=== PATIENT | male | born 1960 | race Caucasian/White ===

== ENCOUNTER 2025-01-29 08:24 | Inpatient (IN) | payer MEDICAID ==
[~2025-01-29] VITALS: Ht 182.9 cm; Wt 134.1 kg
[2025-01-29 08:52] LABS: BASOPHILS % (AUTO) 0.7 % (0-1); EOSINOPHILS # (AUTO) 0.3 X10'3 (0-0.9); EOSINOPHILS % (AUTO) 4.1 % (0-6); HEMATOCRIT 46.5 % (42.0-52.0); HEMOGLOBIN 15.5 g/dl (14.0-17.9); LYMPHOCYTES # (AUTO) 1.4 X10'3 (1.1-4.8); MEAN CORPUSCULAR HEMOGLOBIN 28.9 PG (27.0-31.0); MEAN CORPUSCULAR HGB CONC 33.4 g/dL (33.0-36.5); MEAN CORPUSCULAR VOLUME 86.7 FL (78-98); MEAN PLATELET VOLUME 7.8 FL (7.4-10.4); MONOCYTES # (AUTO) 0.4 X10'3 (0-0.9); NEUTROPHILS # (AUTO) 4.4 X10'3 (1.8-7.7); NEUTROPHILS % (AUTO) 67.2 % (42-75); PLATELET COUNT 266 X10'3 (140-440); RED BLOOD COUNT 5.36 X10'6 (4.70-6.10); RED CELL DISTRIBUTION WIDTH 15.5 % (11.5-14.5); WHITE BLOOD COUNT 6.5 X10'3 (4.5-11.0)
[2025-01-29 09:04] LABS: ALBUMIN 4.5 G/DL (3.4-5.0); ANION GAP 9 (8-16); BLOOD UREA NITROGEN 12 MG/DL (7-18); BUN/CREATININE RATIO 14.8 (10.0-20.0); CALCIUM 9.5 MG/DL (8.5-10.1); CHLORIDE 104 MMOL/L (99-107); CREATININE 0.81 MG/DL (0.60-1.10); GLUCOSE 112 MG/DL (70-104); POTASSIUM 3.5 MMOL/L (3.5-5.1); SODIUM 141 MMOL/L (135-145); eCRCL 101 ML/MIN; eGFR > 90 ML/MIN
[2025-01-29 09:05] LABS: APTT 26 SECONDS (22-32); PROTHROMBIN TIME 10.6 SECONDS (9.0-12.0)
[2025-01-29] MEDS ORDERED: iohexol 350MG/ML 100ml bottle IV ONE (09:36)
[2025-01-29] MEDS: diphenhydrAMINE 50 mg/ml inj IV ONE (10:35)
[2025-01-29] MEDS: proCHLORperazine 10 MG/2 ml inj IV ONE (10:35)
[2025-01-29] MEDS: ketorolac trometh 15mg/ml vial 15 MG/ML ML IV ONE (10:35)
[2025-01-29] MEDS: ringers solution, lacted 1,000 ML IV ONE (10:36)
[2025-01-29] MEDS: labetalol 20mg/4ml (5mg/ml) syringe IV ONE (13:08)
[2025-01-29] MEDS ORDERED: potassium Cl 40MEQ/1/2NS 520ml 520 ML IV PRN (16:45)
[2025-01-29] MEDS ORDERED: magnesium sulf-water 2g/50mL 50 ML IV PRN (16:45)
[2025-01-29] MEDS ORDERED: acetaminophen 325mg tablet PO PRN (16:45)
[2025-01-29] MEDS ORDERED: magnesium sulf-water 4G/100mL 100 ML IV PRN (16:45)
[2025-01-29] MEDS ORDERED: magnesium Cl slow-release 64mg tablet PO PRN (16:45)
[2025-01-29] MEDS ORDERED: PERFLUTREN PROTEIN-A MICROSPHR (Optison) 0.22 MG/ML 3ML VIAL IV ONE (16:45)
[2025-01-29] MEDS ORDERED: potassium Cl 20 mEq SR tablet PO PRN ×2 (16:45)
[2025-01-29 17:00] VITALS: BP 185/96; PULSE 63; RESP 21; TEMP 97.4; O2SAT 97
[2025-01-29 17:33] LABS: CHOL/HDL RATIO 3.1 (0.00-4.99); CHOLESTEROL 170 MG/DL (0-200); HDL CHOLESTEROL 55 MG/DL (35-60); LDL CHOLESTEROL 93 MG/DL (50-100); TRIGLYCERIDES 79 MG/DL (20-135)
[2025-01-29] MEDS: aspirin 325mg tablet PO ONE (18:20)
[2025-01-29] MEDS: hydrALAZINE 20mg/ml inj. IV PRN (18:24)
[2025-01-29 19:51] VITALS: BP 173/78; PULSE 61
[2025-01-29] MEDS ORDERED: hydrALAZINE 20mg/ml inj. IV SCH (20:00)
[2025-01-29] MEDS: K and/or MAG REPLACEMENT MC SCH (20:00)
[2025-01-29] MEDS ORDERED: NO HOME MEDS (20:07)
[2025-01-29 22:00] VITALS: BP 144/72; PULSE 62; RESP 18; TEMP 98.5; O2SAT 95
[2025-01-30 04:00] VITALS: BP 142/75; PULSE 62; O2SAT 94
[2025-01-30 06:00] VITALS: BP 151/69; PULSE 75; RESP 14; TEMP 97.9; O2SAT 94
[2025-01-30 06:03] LABS: EOSINOPHILS # (AUTO) 0.3 X10'3 (0-0.9); HEMOGLOBIN 13.6 g/dl (14.0-17.9); LYMPHOCYTES # (AUTO) 1.4 X10'3 (1.1-4.8); MONOCYTES # (AUTO) 0.5 X10'3 (0-0.9); NEUTROPHILS # (AUTO) 4.2 X10'3 (1.8-7.7); WHITE BLOOD COUNT 6.5 X10'3 (4.5-11.0)
[2025-01-30 06:26] LABS: ALBUMIN 3.7 G/DL (3.4-5.0); ANION GAP 7 (8-16); BLOOD UREA NITROGEN 8 MG/DL (7-18); BUN/CREATININE RATIO 8.6 (10.0-20.0); CALCIUM 8.8 MG/DL (8.5-10.1); CHLORIDE 105 MMOL/L (99-107); CHOL/HDL RATIO 3.1 (0.00-4.99); CHOLESTEROL 128 MG/DL (0-200); CREATININE 0.93 MG/DL (0.60-1.10); GLUCOSE 98 MG/DL (70-104); HDL CHOLESTEROL 41 MG/DL (35-60); LDL CHOLESTEROL 72 MG/DL (50-100); MAGNESIUM 1.9 MG/DL (1.5-2.4); POTASSIUM 3.6 MMOL/L (3.5-5.1); SODIUM 143 MMOL/L (135-145); TOTAL CARBON DIOXIDE 31.3 MMOL/L (24-32); TRIGLYCERIDES 70 MG/DL (20-135); eCRCL 88 ML/MIN; eGFR 82 ML/MIN
[2025-01-30 06:36] LABS: BASOPHILS # (AUTO) 0.1 X10'3 (0-0.2); BASOPHILS % (AUTO) 1.2 % (0-1); EOSINOPHILS % (AUTO) 4.3 % (0-6); HEMATOCRIT 40.5 % (42.0-52.0); LYMPHOCYTES % (AUTO) 21.5 % (21-51); MEAN CORPUSCULAR HEMOGLOBIN 29.1 PG (27.0-31.0); MEAN CORPUSCULAR HGB CONC 33.6 g/dL (33.0-36.5); MEAN CORPUSCULAR VOLUME 86.5 FL (78-98); MONOCYTES % (AUTO) 7.4 % (2-12); NEUTROPHILS % (AUTO) 65.6 % (42-75); PLATELET COUNT 245 X10'3 (140-440); RED BLOOD COUNT 4.68 X10'6 (4.70-6.10); RED CELL DISTRIBUTION WIDTH 15.5 % (11.5-14.5)
[2025-01-30] MEDS: aspirin 325mg tablet PO SCH (07:52)
[2025-01-30 10:00] VITALS: BP 179/84; PULSE 64; RESP 19; TEMP 97.7; O2SAT 97
[2025-01-30 11:36] LABS: HEMOGLOBIN A1C 5.2 % (4.5-6.2)
[2025-01-30] MEDS: clopidogrel 75mg tablet PO STA (12:22)
[2025-01-30] MEDS: atorvastatin 20mg tablet PO STA (12:23)
[2025-01-30] MEDS ORDERED: CLOP-32 PO (14:03)
[2025-01-30] MEDS ORDERED: ASPI-1 PO (14:03)
[2025-01-30] MEDS ORDERED: ATOR-411 PO (14:03)
== END 2025-01-30 15:22 | disposition home or self-care (01) | DRG 45 ==
LOC: ER 08:25 → ED HOLD 11:46 → UNDOADMIN 11:46 → EDBEDREQSVC 15:50 → ED HOLD 16:45 → ORTHO 4S 16:53 → ED HOLD 16:53
PROVIDERS: ADMIT Internal Medicine; ATTEND Internal Medicine
PROC: B3251ZZ Computerized Tomography (CT Scan) of Bilateral Common Carotid Arteries using Low Osmolar Contrast (ICD-10-PCS; principal; 2025-01-29)
PROC: B32G1ZZ Computerized Tomography (CT Scan) of Bilateral Vertebral Arteries using Low Osmolar Contrast (ICD-10-PCS; 2025-01-29)
PROC: B32R1ZZ Computerized Tomography (CT Scan) of Intracranial Arteries using Low Osmolar Contrast (ICD-10-PCS; 2025-01-29)
PROC: B3281ZZ Computerized Tomography (CT Scan) of Bilateral Internal Carotid Arteries using Low Osmolar Contrast (ICD-10-PCS; 2025-01-29)
PROC: 5A09357 Assistance with Respiratory Ventilation, Less than 24 Consecutive Hours, Continuous Positive Airway Pressure (ICD-10-PCS; 2025-01-29)
DX: I63.9 Cerebral infarction, unspecified (principal); E11.9 Type 2 diabetes mellitus without complications; G43.909 Migraine, unspecified, not intractable, without status migrainosus; Z96.653 Presence of artificial knee joint, bilateral
CPT/HCPCS: 36415; 70450; 70496; 70498; 70551; 71045; 80048; 80061; 82948; 83036; 83735; 85025; 85610; 85730; 87081; 92508; 92616; 93005; 93306; 96361; 96374; 96375; 97116; 97161; 97530; 99291; G0378; J0360; J0780; J1200; J1885; J3490; J7120; Q9967